=== PATIENT | female | born 1970 | race Caucasian/White ===

== ENCOUNTER 2024-05-22 19:36 | Emergency (ER) | payer BC ==
[~2024-05-22] VITALS: Ht 160 cm; Wt 48.1 kg
[2024-05-22 19:42] VITALS: O2SAT 99
[2024-05-22] MEDS ORDERED: diphenhydrAMINE 50 MG/1 ML VIAL ONE (20:26)
[2024-05-22] MEDS ORDERED: HYDROMORPHONE 1 MG/1 ML DISP.SYRIN ONE (20:26)
[2024-05-22] MEDS: HYDROMORPHONE 1 MG/1 ML DISP.SYRIN IM ONE (20:30)
[2024-05-22] MEDS: diphenhydrAMINE 50 MG/1 ML VIAL IM ONE (20:30)
[2024-05-22] MEDS ORDERED: HYDR-3980 PO (21:19)
[2024-05-22] MEDS ORDERED: PRED50TA PO (21:19)
[2024-05-22] MEDS: predniSONE 50 MG TABLET PO ONE (21:30)
[2024-05-22] MEDS ORDERED: predniSONE 50 MG TABLET ONE (21:35)
== END 2024-05-22 21:40 | disposition home or self-care (01) ==
LOC: ER 19:50
DX: M47.26 Other spondylosis with radiculopathy, lumbar region (principal); F17.200 Nicotine dependence, unspecified, uncomplicated; Z79.52 Long term (current) use of systemic steroids; Z88.0 Allergy status to penicillin
CPT/HCPCS: 99285; 72131; 96372 ×2; J7512; J1200; J1171; A4606; A4663